=== PATIENT | female | born 1955 | race Caucasian/White ===

== ENCOUNTER 2017-01-03 17:10 | Emergency (ER) | payer MEDICARE, OTHER ==
--- NOTE | 2017-01-03 17:20 | UC ---
Ear Complaint HPI - HPI Summary HPI Summary: Needs ears flushed PCP could not get her in today - History of Current Complaint Stated Complaint: PLUGGED EAR Time Seen by Provider: 01/03/17 17:13 Hx Obtained From: Patient ?: No Onset/Duration: Gradual Onset Severity Initially: Mild Severity Currently: None Associated Signs/Symptoms: Positive: Hearing Loss - Allergies/Home Medications Allergies/Adverse Reactions: Allergies Allergy/AdvReac Type Severity Reaction Status Date / Time Erythromycin Allergy Unknown Verified 01/03/17 17:21 Reaction Details Nitroglycerin Allergy See Comment Verified 01/03/17 17:21 PMH/Surg Hx/FS Hx/Imm Hx Previously Healthy: No Endocrine History Of: Denies: Diabetes Cardiovascular History Of: Reports: Hypertension, Myocardial Infarction Respiratory History Of: Denies: COPD, Asthma Psychological History Of: Reports: Anxiety, Depression Cancer History Of: Denies: Breast Cancer - Surgical History Surgical History: Yes Surgery Procedure, Year, and Place: CARDIAC STENT 2001 - Family History Known Family History: Positive: None Family History: no reported cardio vascular issues in family lineage - Social History Occupation: Employed Full-time Alcohol Use: None Substance Use Type: None Smoking Status (MU): Former Smoker Type: Cigarettes Amount Used/How Often: 1-2 PPD Length of Time of Smoking/Using Tobacco: SINCE 19 YRS OLD Have You Smoked in the Last Year: No When Did the Patient Quit Smoking/Using Tobacco: 09/02/2003 Review of Systems Constitutional: Negative Skin: Negative Eyes: Negative ENT: Ear Ache - feels clogged L>R Respiratory: Negative Cardiovascular: Negative Gastrointestinal: Negative Genitourinary: Negative Motor: Negative Neurovascular: Negative Musculoskeletal: Negative Neurological: Negative Psychological: Negative All Other Systems Reviewed And Are Negative: Yes Physical Exam Triage Information Reviewed: Yes Appearance: Well-Appearing, No Pain Distress, Well-Nourished Vital Signs Reviewed: Yes Eye Exam: Normal Eyes: Positive: Conjunctiva Clear ENT Exam: Normal ENT: Positive: Normal ENT inspection, Hearing grossly normal, Pharynx normal, Other: - b/l cerumen impaction. Negative: Nasal congestion, Nasal drainage, Tonsillar swelling, Tonsillar exudate, Trismus, Muffled/hoarse voice Dental Exam: Normal Neck exam: Normal Neck: Positive: Supple, Nontender, No Lymphadenopathy Respiratory Exam: Normal Respiratory: Positive: No respiratory distress, No accessory muscle use Cardiovascular Exam: Normal Cardiovascular: Positive: Pulses Normal, Brisk Capillary Refill Neurological Exam: Normal Neurological: Positive: Alert, Muscle Tone Normal Psychological Exam: Normal Skin Exam: Normal Re-Evaluation - Re-Evaluation First Eval Change: Improved - Flushed By Rn--Tm visable and WNL Ear Complaint Course/Dx - Course Course Of Treatment: flush ears, avoid q-tips follow with pcp prn - Differential Dx/Diagnosis Differential Diagnosis/HQI/PQRI: Cerumen Impaction, Perforated TM, URI Provider Diagnoses: B/L Cerumen Impaction Resolved Discharge - Discharge Plan Condition: Stable Disposition: HOME Patient Education Materials: Cerumen Impaction (ED), DASH Eating Plan (ED), Hypertension (ED) Referrals: Melinda Shields MD [Primary Care Provider] - If Needed
[2017-01-03 17:21] VITALS: BP 153/73
== END 2017-01-03 17:40 | disposition home or self-care (01) ==
LOC: UCEAST 17:10
DX: H61.23 Impacted cerumen, bilateral (principal)
CPT/HCPCS: 99213; G0463

== ENCOUNTER 2017-02-24 17:42 | Emergency (ER) | payer MEDICARE, OTHER ==
[2017-02-24 17:49] VITALS: BP 164/76
--- NOTE | 2017-02-24 18:19 | UC ---
Ear Complaint HPI - HPI Summary HPI Summary: Gradual onset R ear pain since this morning. Feels a little full and like there is fluid in it. Denies URI sx, fever, recent swimming, or hearing loss. Feels a little better when she rubs in front of her ear and down her jaw. Pt does think she grinds or clenches her teeth at night. - History of Current Complaint Chief Complaint: UCEar Stated Complaint: EAR ACHE Time Seen by Provider: 02/24/17 17:55 Hx Obtained From: Patient ?: No Onset/Duration: Gradual Onset Severity Initially: Mild Severity Currently: Moderate Aggravating Factors: Nothing Alleviating Factors: Nothing Associated Signs/Symptoms: Negative: Discharge, Hearing Loss, Trauma to Ear, URI Symptoms - Allergies/Home Medications Allergies/Adverse Reactions: Allergies Allergy/AdvReac Type Severity Reaction Status Date / Time Erythromycin Allergy Unknown Verified 02/24/17 17:49 Reaction Details Nitroglycerin Allergy See Comment Verified 02/24/17 17:49 PMH/Surg Hx/FS Hx/Imm Hx Cardiovascular History: Hypertension - Surgical History Surgical History: Yes Surgery Procedure, Year, and Place: CARDIAC STENT 2001 - Family History Known Family History: Positive: Hypertension - Social History Alcohol Use: None Substance Use Type: None Smoking Status (MU): Former Smoker Type: Cigarettes Amount Used/How Often: 1-2 PPD Length of Time of Smoking/Using Tobacco: SINCE 19 YRS OLD Have You Smoked in the Last Year: No When Did the Patient Quit Smoking/Using Tobacco: 09/02/2003 Review of Systems Constitutional: Negative Skin: Negative Eyes: Negative ENT: Ear Ache Respiratory: Negative Cardiovascular: Negative Gastrointestinal: Negative Genitourinary: Negative Motor: Negative Neurovascular: Negative Musculoskeletal: Negative Neurological: Negative Psychological: Negative All Other Systems Reviewed And Are Negative: Yes Physical Exam Triage Information Reviewed: Yes Appearance: Well-Appearing, No Pain Distress, Well-Nourished Vital Signs: Initial Vital Signs Temp 96.1 F 02/24/17 17:45 Pulse 85 02/24/17 17:45 Resp 16 02/24/17 17:45 BP 164/76 02/24/17 17:45 Pulse Ox 99 02/24/17 17:45 Vital Signs Reviewed: Yes Eye Exam: Normal, Other - PERRL Eyes: Positive: Conjunctiva Clear ENT Exam: Other - mild tenderness over R TMJ ENT: Positive: TMs normal, Other: - bilat ear canals no swelling, discharge, erythema, or cerumen impactions. Negative: TM bulging, TM dull, TM red Dental Exam: Normal Neck exam: Normal Neck: Positive: Supple, Nontender, No Lymphadenopathy Respiratory Exam: Normal Respiratory: Positive: Chest non-tender, Lungs clear, Normal breath sounds, No respiratory distress, No accessory muscle use Cardiovascular Exam: Normal Cardiovascular: Positive: RRR, No Murmur Musculoskeletal Exam: Normal Neurological Exam: Normal Neurological: Positive: Alert Psychological Exam: Normal Skin Exam: Normal Ear Complaint Course/Dx - Differential Dx/Diagnosis Provider Diagnoses: R otalgia. R TMJ pain Discharge - Discharge Plan Condition: Stable Disposition: HOME Patient Education Materials: Earache (ED), Temporomandibular Disorder (ED) Referrals: Melinda Shields MD [Primary Care Provider] - Additional Instructions: I do not see any infectious cause of your ear pain today. I suspect, given your level of discomfort, that you are having pain from your jaw joint. I recommend you go on a soft [id number] diet for 3-5 days. You can also try intermittent ice packs to the jaw as well as 600mg ibuprofen 3 times per day. Relaxation techniques such as meditation, yoga, and/or massage can help prevent clenching of the jaw. If you have fever, increasing pain, drainage from the ear, or significant hearing changes, please see your primary care provider or return here.
== END 2017-02-24 18:15 | disposition home or self-care (01) ==
LOC: UCEAST 17:42
DX: H92.01 Otalgia, right ear (principal); M26.621 Arthralgia of right temporomandibular joint; I10 Essential (primary) hypertension; Z95.5 Presence of coronary angioplasty implant and graft; Z87.891 Personal history of nicotine dependence
CPT/HCPCS: 99211; G0463

== ENCOUNTER 2017-07-26 15:59 | Emergency (ER) | payer MEDICARE, OTHER ==
[2017-07-26 16:34] VITALS: BP 153/75
--- NOTE | 2017-07-26 17:06 | UC ---
Back Pain HPI - HPI Summary HPI Summary: No known injury, Right sciatic pain no numbness or tingling - History of Current Complaint Chief Complaint: UCBackPain Stated Complaint: LOWER BACK AND HIP PAIN Time Seen by Provider: 07/26/17 16:51 Hx Obtained From: Patient ?: No Onset/Duration: Gradual Onset, Lasting Days - 10 Timing: Constant, Lasting Days Severity Initially: Moderate Severity Currently: Moderate Back Pain: Is Discrete @ - right sciatic Character: Aching, Spasmodic Aggravating Factor(s): Movement Alleviating Factor(s): Rest, Position Associated Signs And Symptoms: Positive: Negative - Allergies/Home Medications Allergies/Adverse Reactions: Allergies Allergy/AdvReac Type Severity Reaction Status Date / Time Erythromycin Allergy Unknown Verified 07/26/17 16:34 Reaction Details Nitroglycerin Allergy See Comment Verified 07/26/17 16:34 Home Medications: Home Medications Rosuvastatin (NF) [Crestor (NF)] 1 tab PO DAILY 07/26/17 [History Confirmed ] PMH/Surg Hx/FS Hx/Imm Hx Previously Healthy: No Endocrine History: Dyslipidemia Cardiovascular History: Hypertension - Surgical History Surgical History: Yes Surgery Procedure, Year, and Place: CARDIAC STENT 2001 - Family History Known Family History: Positive: None, Hypertension Family History: no reported cardio vascular issues in family lineage - Social History Occupation: Retired Lives: With Family Alcohol Use: None Substance Use Type: None Smoking Status (MU): Former Smoker Type: Cigarettes Amount Used/How Often: 1-2 PPD Length of Time of Smoking/Using Tobacco: SINCE 19 YRS OLD Have You Smoked in the Last Year: No When Did the Patient Quit Smoking/Using Tobacco: 09/02/2003 Review of Systems Constitutional: Negative Skin: Negative Eyes: Negative ENT: Negative Respiratory: Negative Cardiovascular: Negative Gastrointestinal: Negative Genitourinary: Negative Motor: Negative Neurovascular: Negative Musculoskeletal: Negative, Arthralgia - right hip,right sciatic joint Neurological: Negative Psychological: Negative Is Patient Immunocompromised?: No All Other Systems Reviewed And Are Negative: Yes Physical Exam Triage Information Reviewed: Yes Appearance: Well-Appearing, No Pain Distress, Well-Nourished Vital Signs: Initial Vital Signs Temp 97.7 F 07/26/17 16:31 Pulse 88 07/26/17 16:31 Resp 18 07/26/17 16:31 BP 153/75 07/26/17 16:31 Pulse Ox 99 07/26/17 16:31 Vital Signs Reviewed: Yes Eye Exam: Normal Eyes: Positive: Conjunctiva Clear ENT Exam: Normal ENT: Positive: Normal ENT inspection, Hearing grossly normal. Negative: Trismus , Muffled voice, Hoarse voice, Sinus tenderness Dental Exam: Normal Neck exam: Normal Neck: Positive: Supple, Nontender, No Lymphadenopathy Respiratory Exam: Normal Respiratory: Positive: Chest non-tender, Lungs clear, Normal breath sounds, No respiratory distress, No accessory muscle use Cardiovascular Exam: Normal Cardiovascular: Positive: RRR, No Murmur, Pulses Normal, Brisk Capillary Refill Musculoskeletal Exam: Normal Musculoskeletal: Positive: Strength Intact, ROM Intact, No Edema Neurological Exam: Normal Neurological: Positive: Alert, Muscle Tone Normal Psychological Exam: Normal Skin Exam: Normal Back Pain Course/Dx - Course Course Of Treatment: referal to physical therapy, pain med, low back exercise, follow with pcp and physical theray - Differential Dx/Diagnosis Provider Diagnoses: Right sciatic pain Discharge - Discharge Plan Condition: Stable Disposition: HOME Prescriptions: Hydrocodone-Acetaminophen [Hydrocodone/Acetaminophen 5-325 mg] 0.5 - 1 tab PO Q6H PRN #10 tab MDD 4 PRN Reason: pain Ibuprofen TAB* [Motrin TAB* 600 MG] 600 mg PO Q6H PRN #30 tab PRN Reason: pain Patient Education Materials: Sciatica (ED), Hypertension (ED), Lower Back Exercises (ED) Referrals: Melinda Shields MD [Primary Care Provider] - 1 Week
== END 2017-07-26 17:24 | disposition home or self-care (01) ==
LOC: UCEAST 15:59
DX: M54.31 Sciatica, right side (principal)
CPT/HCPCS: 99212; G0463

== ENCOUNTER 2018-07-21 14:39 | Emergency (ER) | payer MEDICARE, OTHER ==
--- NOTE | 2018-07-21 14:44 | UC ---
Eye Complaint HPI - HPI Summary HPI Summary: 63 yo female presents with FB sensation in left eye. She tells me that yesterday she began to feel "something" under her left upper eyelid. This has persisted to today. She wears glasses, but no contacts. She has not been outdoors and does not recall getting anything into her eye. Denies vision changes, eye pain, or drainage. - History of Current Complaint Stated Complaint: EYE IRRITATION Time Seen by Provider: 07/21/18 14:44 Hx Obtained From: Patient Onset/Duration: Sudden Onset Severity Initially: Mild Severity Currently: Mild - Allergies/Home Medications Allergies/Adverse Reactions: Allergies Allergy/AdvReac Type Severity Reaction Status Date / Time erythromycin base Allergy Nausea And Verified 07/21/18 14:47 Vomiting nitroglycerin Allergy Anaphylatic Verified 07/21/18 14:47 Shock PMH/Surg Hx/FS Hx/Imm Hx Endocrine History: Dyslipidemia Cardiovascular History: Cardiac Disease, Hypertension - Surgical History Surgical History: Yes Surgery Procedure, Year, and Place: CARDIAC STENT 2001 - Family History Known Family History: Positive: Hypertension - Social History Lives: With Family Alcohol Use: None Substance Use Type: None Smoking Status (MU): Former Smoker Type: Cigarettes Amount Used/How Often: 1-2 PPD Length of Time of Smoking/Using Tobacco: SINCE 19 YRS OLD Have You Smoked in the Last Year: No When Did the Patient Quit Smoking/Using Tobacco: 09/02/2003 Review of Systems All Other Systems Reviewed And Are Negative: Yes Constitutional: Positive: Negative Skin: Positive: Negative Eyes: Positive: Other - FB sensation in left eye ENT: Positive: Negative Respiratory: Positive: Negative Cardiovascular: Positive: Negative Neurological: Positive: Negative Psychological: Positive: Negative Physical Exam - Summary Physical Exam Summary: GENERAL: WDWN. No pain distress. SKIN: No rashes, sores, lesions, or open wounds. HEENT: Head: AT/NC Eyes: EOM intact without pain. PERRLA. LEFT EYE: No scleral injection. Conjunctiva without erythema or inflammation. No discharge or FB appreciated. RIGHT EYE: Conjunctiva clear without inflammation or discharge. No FBs appreciated. Fluorescein exam performed in left eye; no areas of increased uptake, abrasion, FB, or temi sign. NECK: Supple. Nontender. No lymphadenopathy. CHEST: No accessory muscle use. Breathing comfortably and in no distress. CV: Pulses intact. Cap refill <2seconds NEURO: Alert. PSYCH: Age appropriate behavior. Triage Information Reviewed: Yes Vital Signs: Vital Signs: Temp Pulse Resp BP Pulse Ox 97.6 F 75 18 146/74 99 07/21/18 14:49 07/21/18 14:49 07/21/18 14:49 07/21/18 14:55 07/21/18 14:49 Vital Signs Reviewed: Yes Eye Complaint Course/Dx - Course Course Of Treatment: One drop of tetracaine was instilled into the left eye. Pt had immediate relief of FB sensation. Dye exam was normal. The underside of the upper and lower eyelids were swept x2 with a cotton swab without definite FB removed. Pt observed for 15-20minutes and had complete resolution of her symptoms. Will have her f/u if her symptoms return. - Differential Dx/Diagnosis Provider Diagnoses: Left eye FB sensation Discharge - Sign-Out/Discharge Documenting (check all that apply): Patient Departure All imaging exams completed and their final reports reviewed: No Studies - Discharge Plan Condition: Stable Disposition: HOME Patient Education Materials: Eye Foreign Body (ED) Referrals: Melinda Shields MD [Primary Care Provider] - Additional Instructions: If you develop a fever, shortness of breath, chest pain, new or worsening symptoms - please call your PCP or go to the ED. Your blood pressure was high at todays visit. Please see your primary provider within 4 weeks for recheck and re-evaluation. - Billing Disposition and Condition Condition: STABLE Disposition: Home - Attestation Statements Provider Attestation: Per institutional requirements, I have reviewed the chart, however, I was not consulted specifically or made aware of this patient by the midlevel provider. I did not personally evaluate, interact with , or disposition this patient.
[2018-07-21] MEDS ORDERED: Fluorescein Sodium TOPICAL* 1 MG TEST STRIP OPHTHALMIC ONE (14:53)
[2018-07-21] MEDS ORDERED: Tetracaine 0.5% OPTH.SOL 4 ML* 1 DROP BTL BOTH EYES ONE (14:53)
[2018-07-21 14:55] VITALS: BP 146/74
== END 2018-07-21 15:25 | disposition home or self-care (01) ==
LOC: UCEAST 14:39
DX: T15.92XA Foreign body on external eye, part unspecified, left eye, initial encounter (principal); Z88.1 Allergy status to other antibiotic agents; Z88.8 Allergy status to other drugs, medicaments and biological substances; I10 Essential (primary) hypertension; Z87.891 Personal history of nicotine dependence
CPT/HCPCS: 67938; 99211; A9270-GY; G0463

== ENCOUNTER 2018-09-24 18:01 | Emergency (ER) | payer MEDICARE, OTHER ==
[2018-09-24 18:16] VITALS: BP 162/77
--- NOTE | 2018-09-24 18:30 | UC ---
Ear Complaint HPI - HPI Summary HPI Summary: The patient is a 63-year-old female with mild left ear discomfort times hours. She has a history of cerumen impaction. She denies any recent URI symptoms. Her pain is very mild. 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 Onset/Duration: Gradual Onset, Lasting Hours Severity Initially: Mild Severity Currently: Mild Pain Intensity: 1 Pain Scale Used: 0-10 Numeric Aggravating Factors: Nothing Alleviating Factors: Nothing Associated Signs/Symptoms: Negative: Discharge, Hearing Loss, Foreign Body Sensation, Trauma to Ear, Swelling @, URI Symptoms - Allergies/Home Medications Allergies/Adverse Reactions: Allergies Allergy/AdvReac Type Severity Reaction Status Date / Time erythromycin base Allergy Nausea And Verified 09/24/18 18:16 Vomiting nitroglycerin Allergy Anaphylatic Verified 09/24/18 18:16 Shock Home Medications: Home Medications Ibuprofen TAB* [Motrin TAB* 600 MG] 400 mg PO Q6H PRN 09/24/18 [History Confirmed 09/24/18] PMH/Surg Hx/FS Hx/Imm Hx Previously Healthy: Yes Endocrine History: Dyslipidemia Cardiovascular History: Hypertension - Surgical History Surgical History: Yes Surgery Procedure, Year, and Place: CARDIAC STENT 2001 - Family History Known Family History: Positive: None, Hypertension Family History: no reported cardio vascular issues in family lineage - Social History Alcohol Use: None Substance Use Type: None Smoking Status (MU): Former Smoker Type: Cigarettes Amount Used/How Often: 1-2 PPD Length of Time of Smoking/Using Tobacco: SINCE 19 YRS OLD Have You Smoked in the Last Year: No When Did the Patient Quit Smoking/Using Tobacco: 09/02/2003 - Immunization History Most Recent Tetanus Shot: unknown Review of Systems All Other Systems Reviewed And Are Negative: Yes Constitutional: Positive: Negative Skin: Positive: Negative Eyes: Positive: Negative ENT: Positive: Ear Ache Respiratory: Positive: Negative Cardiovascular: Positive: Negative Gastrointestinal: Positive: Negative Genitourinary: Positive: Negative Motor: Positive: Negative Neurovascular: Positive: Negative Musculoskeletal: Positive: Negative Neurological: Positive: Negative Psychological: Positive: Negative Physical Exam Triage Information Reviewed: Yes Appearance: Well-Appearing, No Pain Distress, Well-Nourished Vital Signs: Initial Vital Signs Temp 97.8 F 01/23/19 18:11 Pulse 79 09/24/18 18:11 Resp 16 09/24/18 18:11 BP 162/77 09/24/18 18:11 Pulse Ox 100 09/24/18 18:11 Vital Signs Reviewed: Yes Eyes: Positive: Conjunctiva Clear ENT: Positive: Hearing grossly normal, TMs normal - Right OK, Left unable to vis due to cerumen, Uvula midline. Negative: Nasal congestion, Nasal drainage, Tonsillar swelling, Tonsillar exudate, Muffled voice, Hoarse voice, Sinus tenderness Neck: Positive: Supple, Nontender, No Lymphadenopathy Respiratory: Positive: Lungs clear, Normal breath sounds, No respiratory distress, No accessory muscle use Cardiovascular: Positive: RRR, No Murmur Musculoskeletal: Positive: ROM Intact, No Edema Neurological: Positive: Alert Psychological Exam: Normal Skin Exam: Normal Re-Evaluation - Re-Evaluation First Eval Re-Evaluation Time: 18:55 Change: Improved Comment: after flush TM normal. EAC without lesions Ear Complaint Course/Dx - Differential Dx/Diagnosis Provider Diagnosis: Impacted cerumen, left ear Discharge - Sign-Out/Discharge Documenting (check all that apply): Patient Departure All imaging exams completed and their final reports reviewed: No Studies - Discharge Plan Condition: Stable Disposition: HOME Patient Education Materials: Cerumen Impaction (ED) Referrals: Melinda Shields MD [Primary Care Provider] - If Needed - Billing Disposition and Condition Condition: STABLE Disposition: Home
== END 2018-09-24 19:03 | disposition home or self-care (01) ==
LOC: UCEAST 18:01
DX: H61.22 Impacted cerumen, left ear (principal); Z95.5 Presence of coronary angioplasty implant and graft; Z88.1 Allergy status to other antibiotic agents; Z88.8 Allergy status to other drugs, medicaments and biological substances; Z87.891 Personal history of nicotine dependence
CPT/HCPCS: 99213; G0463

== ENCOUNTER 2019-07-11 16:52 | Emergency (ER) | payer MEDICARE, OTHER ==
--- OUTSIDE RECORDS SUMMARY | 2019-07-11 17:00 | XMS REPORT | Continuity of Care Document ---
:1955 External Reference #:[id number] Author Name Nelsy Sampson NP Address [address] [facility] [place] [address] Care Team Providers Name Role Phone Melinda Shields M.D. - Family Medicine Care Team Information Amf Mechanic Unavailable Celena Astudillo MD - Cardiovascular Care Team Information Amf Mechanic Disease Problems Active Problems Provider Date Coronary arteriosclerosis Melinda Shields M.D. Onset: 04/27/2016 Mixed hyperlipidemia Melinda Shields M.D. Onset: 04/27/2016 Thyroid nodule Melinda Shields M.D. Onset: 05/30/2016 Atherosclerotic heart disease of [place] coronary Melinda Shields M.D. Onset: artery with unspecified angina pectoris Essential hypertension Melinda Shields M.D. 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 Tobacco Use Start: Unknown End: Patient is a former Unknown smoker Smoking Status Reviewed: 07/06/19 Patient is a former smoker Allergies, Adverse Reactions, Alerts Active Allergies Reaction Severity Comments Date Nitroglycerine 02/15/2004 Erythromycin 02/15/2004 Medications Active Medications SIG Qnty Indications Ordering Date Provider Pyridium take one-two 30tabs N39.0 Nelsy Tinajero 07/06/2019 100mg Tablets tablets every 8 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, 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 hours as needed for urinary symptoms Losartan Potassium Take 1 & 1/2 45tabs I10 Shanthi Fan, 12/18/2013 50mg Tablet By Mouth SPECIMEN BOSS Tablets Every Day Multi Vitamin Daily once a day Unknown Tablets Vitamin C 1 by mouth every Unknown 500mg day Capsules Co-Enzyme Q-10 1 by mouth every Unknown 100mg day Capsules Fish Oil 1 by mouth every Unknown 1200mg day Capsules Ecotrin Low Strength 1 by mouth every 100tabs Unknown day 81mg Tablets DR Vitamin D 1 po every day Unknown 2000Unit Tablets Rosuvastatin Calcium 1/2 by mouth E78.2 Unknown every day 20mg Tablets History Medications Macrobid 1 by mouth twice a 14caps N39.0 Neto Mckeon 06/26/2019 - 100mg day x 7d MD Albina 07/06/2019 Capsules Physical Therapy treatment and Lisa Haddad, 04/20/2019 - evaluation of left Afnp-C 07/06/2019 low back pain Immunizations CPT Code Status Date Vaccine Lot # [id number] Given 06/09/2018 Influenza Vac, [place], [place] [address] Given 06/09/2018 Influenza Vac, [place], [place] [address] Given 06/24/2017 Influenza Vac, Quadrivalent, Slit Virus, Im [id number] 28797 Given 07/04/2015 Influenza Vac, Quadrivalent, Slit Virus, Im [id number] Q2038 Given 06/24/2014 Split Influenza Medicare: Fluzone [id number] 57579 Given 06/19/2008 DO Not Use Split Influenza Virus Vaccine [id number] 36146 Given 07/19/2007 DO Not Use Split Influenza Virus Vaccine [id number] 29864 Given 06/21/2005 DO Not Use Split Influenza Virus Vaccine 72038 Given 11/14/2004 Rubella Immunization 45739 Given 08/14/2002 Td Immunization, For Use In Individuals 7 Years Or Older Vital Signs Date Vital Result Comment 07/06/2019 1:20pm BP Systolic 138 mmHg BP Diastolic 72 mmHg Heart Rate 88 /min Body Temperature 97.9 F Respiratory Rate 16 /min Height 64 inches 5'4" per patient Weight 150.00 lb BMI (Body Mass Index) 25.7 kg/m2 06/26/2019 2:57pm BP Systolic 142 mmHg BP Diastolic 70 mmHg Heart Rate 78 /min Body Temperature 98.1 F Respiratory Rate 16 /min Height 64 inches 5'4" per patient Weight 150.00 lb BMI (Body Mass Index) 25.7 kg/m2 Results Test Date Facility Test Result H/L Range Note Ua - Micro (Fma) 07/06/2019 [facility] Medicine Appearance clear (607)- - Color yellow Glucose, Urine (Fma/CMC/CTX) neg Bilirubin neg Ketones neg SP Grav <=1.005 Blood neg PH 6.0 Protein neg Urobil 0.2 Nitrite neg Leukocytes (Fma/CMC/Centrex) trace Hyaline - /Lpf Granular - /Lpf WBC (Fma,Centrex) 0-2 RBC 0-1 Mucus (Fma/CBC/Centrex) - /Lpf Epith rare /Lpf Bacteria rare /Hpf Amorphous (Fma/CMC/Centrex) - /Lpf Crystals, Fluid (Fma/CMC/CTX) - Ua - Non Micro (Fma) 06/26/2019 Family [facility] Appearance clear (607)- - Color yellow Glucose, Urine (Fma/CMC/CTX) neg Bilirubin neg Ketones neg SP Grav 1.015 Blood neg PH 6.0 Protein neg Urobil 0.2 Nitrite neg Leukocytes (Fma/CMC/Centrex) small Urine Culture And 06/26/2019 [facility] Urine Culture SEE RESULT 1 Sensitivities BELOW Lipid Profile 02/23/2019 [facility](a) Cholesterol 224 mg/dL High 120-20 0 Triglycerides 142 mg/dL 30-200 HDL Cholesterol 59 mg/dL 30-85 LDL (Calculated) 137 CALC High 0-129 VLDL Cholesterol 28 mg/dL 0-50 HDL Risk Factor 3.8 CALC 0.0-4.4 1 SEE RESULT BELOW Name: MELINDA POPE : [address]: Neto Montemayor MD Acct: [id number] Unit: [id number] AGE: 64 Location: [facility] Re06/26/19 SEX: F Status: REG REF SPEC: [id number] ANNA: 06/26/[address]: Neto Montemayor MD REQ: [id number] RECD: 06/26/19 STATUS: COMP _ SOURCE: URINE SPDESC: ORDERED: Urine Culture COMMENTS: 1 elias urine top [id number] Urine Source: Random Procedure Result Reported Site Urine Culture Final 06/27/19- 1628 ML No Growth (<1,000 CFU/mL) * ML - Main Lab . END OF REPORT DEPARTMENT OF PATHOLOGY, [address] [place] [address] Santiago Encarnacion M.D. Director [facility] # [id number] Procedures Date Code Description Status 10/18/2017 [id number] Mammogram Completed 11/07/2016 [id number] Colonoscopy Completed 06/05/2016 [id number] Mammogram Completed 12/28/2008 [id number] Mammogram Completed 05/04/2008 [id number] Mammogram Completed 09/17/2007 [id number] Mammogram Completed 01/30/2007 [id number] Mammogram Completed 06/25/2006 [id number] Colonoscopy Completed 06/18/2006 [id number] Mammogram Completed Medical Devices Description No Information Available Encounters Type Date Location Provider Dx Diagnosis Office Visit 06/26/2019 Main Office Neto Mckeon N39.0 Urinary tract 2:50p MD Albina infection, site not specified Office Visit 04/20/2019 [facility] Lisa Haddad M54.5 Low back pain 4:30p Afnp-C Assessments Date Code Description Provider 07/06/2019 N39.0 Urinary tract infection, site not specified Nelsy Sampson NP 06/26/2019 N39.0 Urinary tract infection, site not specified Neto Montemayor MD 04/20/2019 M54.5 Low back pain Alex Hatch-C 02/23/2019 I10 Essential (primary) hypertension Melinda Shields M.D. Plan of Treatment 07/06/2019 - Nelsy Sampson NPN39.0 Urinary tract infection, site not specifiedNew Medication:Pyridium 100 mg - take one-two tablets every 8 hours as needed for urinary symptomsComments:Supportive Care: Drink lots of fluidswear cotton underweardo not soak in hot tubs/ bath tubs urinateafter sexual intercourse To prevent stomach upset, please start consuming live cultures ( yogurt, [place] probiotic, Kombucha) Pyridium: Beware it causes your urine to turn orange and may stain some of your underwear.AllComments:Medication Management Patient Understands medications he 's taking? Yes No Are there Barriers to Adherence? Yes No Has the patient been asked about herbal supplements and therapies, andOTC meds? Yes No Care Plan1. Patient has been queried about patient's goals/preferences and functional/ lifestyle goals at relevant visits. If relevant, describe: na2. Treatment goals as explained to the patient: above3. Are there barriers to meeting treatment goals? Yes No If Yes, please describe:4. Self-Management goals as described to the patient: Yes NoAs always, we strongly encourage a healthy diet and making physical activity a part of your every day life. If you have questions about how or where to start, please contact the office. Functional Status Description No Information Available Mental Status Description No Information Available Referrals Description No Information Available
--- OUTSIDE RECORDS SUMMARY | 2019-07-11 17:00 | XMS REPORT | Continuity of Care Document ---
:1955 External Reference #:[id number] Author Name Neto Montemayor MD Address [address] [facility] [place] [address] Care Team Providers Name Role Phone Melinda Shields M.D. - Family Medicine Care Team Information Food Service Representative Unavailable Celena Astudillo MD - Cardiovascular Care Team Information Food Service Representative [phone] Disease Problems Active Problems Provider Date Coronary arteriosclerosis Melinda Shields M.D. Onset: 04/27/2016 Mixed hyperlipidemia Melinda Shields M.D. Onset: 04/27/2016 Thyroid nodule Melinda Shields M.D. Onset: 05/30/2016 Atherosclerotic heart disease of [place] coronary Melinda Shields M.D. Onset: artery with unspecified angina pectoris Essential hypertension Melinda Shields M.D. 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 Tobacco Use Start: Unknown End: Patient is a former Unknown smoker Smoking Status Reviewed: 04/21/19 Patient is a former smoker Allergies, Adverse Reactions, Alerts Active Allergies Reaction Severity Comments Date Nitroglycerine 02/15/2004 Erythromycin 02/15/2004 Medications Active Medications SIG Qnty Indications Ordering Date Provider Macrobid 1 by mouth twice a 14caps N39.0 Neto Mckeon 06/26/2019 100mg day x 7d MD Albina Capsules Physical Therapy treatment and Lisa 04/20/2019 evaluation of left [place], Afnp-C low back pain Losartan Potassium Take 1 & 1/2 45tabs I10 Shanthi Fan, 12/18/2013 Tablet By Mouth SALES CLOSER 50mg Tablets Every Day Multi Vitamin Daily once a day Unknown Tablets Vitamin C 1 by mouth every Unknown 500mg day Capsules Co-Enzyme Q-10 1 by mouth every Unknown 100mg day Capsules Fish Oil 1 by mouth every Unknown 1200mg day Capsules Ecotrin Low Strength 1 by mouth every 100tabs Unknown day 81mg Tablets Vitamin D 1 po every day Unknown 2000Unit Tablets Rosuvastatin Calcium 1/2 by mouth every E78.2 Unknown day 20mg Tablets Immunizations CPT Code Status Date Vaccine Lot # [id number] Given 06/09/2018 Influenza Vac, Quadriv[place], [place] [id number] Given 06/09/2018 Influenza Vac, [place]riv[place], [place] [address] Given 06/24/2017 Influenza Vac, Quadrivalent, Slit Virus, Im [id number] 69838 Given 07/04/2015 Influenza Vac, Quadrivalent, Slit Virus, Im [id number] Q2038 Given 06/24/2014 Split Influenza Medicare: Fluzone [id number] 70212 Given 06/19/2008 DO Not Use Split Influenza Virus Vaccine [id number] 37654 Given 07/19/2007 DO Not Use Split Influenza Virus Vaccine [id number] 05567 Given 06/21/2005 DO Not Use Split Influenza Virus Vaccine 29131 Given 11/14/2004 Rubella Immunization 11224 Given 08/14/2002 Td Immunization, For Use In Individuals 7 Years Or Older Vital Signs Date Vital Result Comment 06/26/2019 2:57pm BP Systolic 142 mmHg BP Diastolic 70 mmHg Heart Rate 78 /min Body Temperature 98.1 F Respiratory Rate 16 /min Height 64 inches 5'4" per patient Weight 150.00 lb BMI (Body Mass Index) 25.7 kg/m2 04/20/2019 4:22pm BP Systolic 128 mmHg BP Diastolic 70 mmHg Heart Rate 66 /min Body Temperature 97.7 F Height 64 inches 5'4" per patient Weight 146.00 lb BMI (Body Mass Index) 25.1 kg/m2 Results Test Date Facility Test Result H/L Range Note Ua - Non Micro (Fma) 06/26/2019 [facility] Appearance clear (607)- - Color yellow Glucose, Urine (Fma/CMC/CTX) neg Bilirubin neg Ketones neg SP Grav 1.015 Blood neg PH 6.0 Protein neg Urobil 0.2 Nitrite neg Leukocytes (Fma/CMC/Centrex) small Lipid Profile 02/23/2019 [place](fma) Cholesterol 224 mg/dL High 120-200 Triglycerides 142 mg/dL 30-200 HDL Cholesterol 59 mg/dL 30-85 LDL (Calculated) 137 CALC High 0-129 VLDL Cholesterol 28 mg/dL 0-50 HDL Risk Factor 3.8 CALC 0.0-4.4 Procedures Date Code Description Status 12/30/2018 66728 Remove Impact Cerumen Irrigati Completed 10/18/2017 [id number] Mammogram Completed 11/07/2016 [id number] Colonoscopy Completed 06/05/2016 [id number] Mammogram Completed 12/28/2008 [id number] Mammogram Completed 05/04/2008 [id number] Mammogram Completed 09/17/2007 [id number] Mammogram Completed 01/30/2007 [id number] Mammogram Completed 06/25/2006 [id number] Colonoscopy Completed 06/18/2006 [id number] Mammogram Completed Medical Devices Description No Information Available Encounters Type Date Location Provider Dx Diagnosis Office Visit 04/20/2019 [facility] Lisa Haddad, M54.5 Low back pain 4:30p Afnp-C Office Visit 12/30/2018 Main Office Nelsy Tinajero H61.23 Impacted cerumen, 10:30a CORNELIUS Sampson bilateral Assessments Date Code Description Provider 06/26/2019 N39.0 Urinary tract infection, site not Neto Montemayor MD specified 04/20/2019 M54.5 Low back pain Mathisnp-C 02/23/2019 I10 Essential (primary) hypertension Melinda Shields M.D. 12/30/2018 H61.23 Impacted cerumen, bilateral Nelsy Sampson NP Plan of Treatment 06/26/2019 - Neto Montemayor MDN39.0 Urinary tract infection, site not specifiedNew Medication:Macrobid 100 mg - 1 by mouth twice a day x 7dAllComments :Medication Management Patient Understands medications she's taking? Yes No Are there Barriers to Adherence? Yes No Has the patient been asked about herbal supplements and therapies, and OTC meds? Yes No Functional Status Description No Information Available Mental Status Description No Information Available Referrals Description No Information Available
[2019-07-11 17:07] VITALS: BP 152/72
--- NOTE | 2019-07-11 17:23 | UC ---
Respiratory Complaint HPI - HPI Summary HPI Summary: started with ST and PND 1 week sago, over past 3 days has developed cough. last pm it was worse and she cannnot sleep d/t cough. 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 Negative: Fever, Chills - Allergies/Home Medications Allergies/Adverse Reactions: Allergies Allergy/AdvReac Type Severity Reaction Status Date / Time nitroglycerin Allergy Anaphylatic Verified 07/11/19 17:07 Shock erythromycin base AdvReac Nausea And Verified 07/11/19 17:07 Vomiting PMH/Surg Hx/FS Hx/Imm Hx Previously Healthy: Yes Endocrine History: Dyslipidemia Cardiovascular History: Hypertension - Surgical History Surgical History: Yes Surgery Procedure, Year, and Place: CARDIAC STENT 2001 - Family History Known Family History: Positive: None, Hypertension Family History: no reported cardio vascular issues in family lineage - Social History Occupation: Retired Lives: Alone Alcohol Use: None Substance Use Type: None Smoking Status (MU): Former Smoker Type: Cigarettes Amount Used/How Often: 1-2 PPD Length of Time of Smoking/Using Tobacco: SINCE 19 YRS OLD Have You Smoked in the Last Year: No When Did the Patient Quit Smoking/Using Tobacco: 09/02/2001 - Immunization History Most Recent Influenza Vaccination: 2019 Most Recent Tetanus Shot: unknown Review of Systems All Other Systems Reviewed And Are Negative: Yes Constitutional: Positive: Fatigue. Negative: Fever, Chills Skin: Positive: Negative ENT: Positive: Sore Throat, Sinus Congestion Respiratory: Positive: Cough Cardiovascular: Positive: Negative. Negative: Chest Pain Gastrointestinal: Positive: Negative Neurological: Positive: Negative. Negative: Headache Psychological: Positive: Negative Is Patient Immunocompromised?: No Physical Exam Triage Information Reviewed: Yes Appearance: Well-Appearing, No Pain Distress, Well-Nourished Vital Signs: Initial Vital Signs Temp 98.5 F 07/11/19 17:01 Pulse 93 07/11/19 17:01 Resp 18 07/11/19 17:01 BP 152/72 07/11/19 17:01 Pulse Ox 100 07/11/19 17:01 Vital Signs Reviewed: Yes Eyes: Positive: Conjunctiva Clear ENT: Positive: Pharynx normal, Nasal congestion, TMs normal. Negative: Hoarse voice Neck exam: Normal Neck: Positive: Supple, Nontender Respiratory: Positive: Crackles - Lower R lobe, persistent deep cough with deep inspirations Cardiovascular Exam: Normal Cardiovascular: Positive: RRR Neurological Exam: Normal Neurological: Positive: Alert Psychological Exam: Normal Skin Exam: Normal Skin: Negative: Rashes Respiratory Course/Dx - Differential Dx/Diagnosis Differential Diagnosis/HQI/PQRI: Bronchitis, Influenza, Lower Resp Infection, Sinusitis Provider Diagnosis: Bronchitis Discharge ED - Sign-Out/Discharge Documenting (check all that apply): Patient Departure All imaging exams completed and their final reports reviewed: No Studies - Discharge Plan Condition: Good Disposition: HOME Prescriptions: Cefdinir [Cefdinir 300 MG CAP] 300 mg PO BID #20 capsule guaiFENesin/CODIEN 100MG-10MG* [Robitussin AC 100Mg-10Mg*] 10 ml PO Q4H PRN # 120 ml MDD 40ml PRN Reason: Cough Patient Education Materials: Acute Bronchitis (ED) Referrals: Melinda Shields MD [Primary Care Provider] - 2 Days (If no better and to recheck blood pressure) Additional Instructions: rest and drink plenty of fluids start antibiotic and take as directed use codeine cough syrup as directed (no alcohol when using this medication) - Billing Disposition and Condition Condition: GOOD Disposition: Home - Attestation Statements Provider Attestation: Per institutional requirements, I have reviewed the chart, however, I was not consulted specifically or made aware of this patient by the midlevel provider. I did not personally evaluate, interact with , or disposition this patient.
== END 2019-07-11 17:37 | disposition home or self-care (01) ==
LOC: UCEAST 16:52
DX: J40 Bronchitis, not specified as acute or chronic (principal); I10 Essential (primary) hypertension; R09.81 Nasal congestion; Z95.5 Presence of coronary angioplasty implant and graft; Z88.0 Allergy status to penicillin; Z88.8 Allergy status to other drugs, medicaments and biological substances; Z87.891 Personal history of nicotine dependence
CPT/HCPCS: 99212; G0463

== ENCOUNTER 2020-07-19 08:50 | Inpatient (IN) ==
[~2020-07-19 08:50] MED LIST: Buffered Lidocaine 1% SYRIN 1 ml INTRADERM ONE; Lactated Ringers 1000 ml BAG 1,000 ML IV SCH
[2020-07-19] MEDS ORDERED: Buffered Lidocaine 1% SYRIN 1 ml INTRADERM ONE (09:28)
[2020-07-19] MEDS ORDERED: ceFAZolin 2 GM PREMIX 2 GM/50 ML BAG ONE (09:28)
[2020-07-19] MEDS ORDERED: fentaNYL 250 mcg/5 ml 50 MCG/ML 5 ml VIAL (250 MCG) ONE (09:52)
[2020-07-19] MEDS ORDERED: fentaNYL 100 mcg/2 ml 50 MCG/ML VIAL ONE (09:52)
[2020-07-19] MEDS ORDERED: Midazolam 5 mg/5 ml VIAL 1 mg/ml 5 ml VIAL (5 mg) ONE (09:52)
[2020-07-19] MEDS ORDERED: Propofol 10 MG/ML 20 ML BTL ONE ×2 (12:04→12:56)
[2020-07-19] MEDS ORDERED: Phenylephrine 40 mcg/mL 10mL (400mcg) SYRINGE ONE (12:21)
[2020-07-19] MEDS ORDERED: Ondansetron 4 mg VIAL 2 MG/ML 2 ml VIAL IV PRN (12:46)
[2020-07-19] MEDS ORDERED: Naloxone 0.4 mg VIAL 0.4 mg/ml 1 ml VIAL IV PRN (12:46)
[2020-07-19] MEDS ORDERED: diPHENhydraMINE IV 50 MG/ML 1 ml VIAL (BENADRYL) IV PRN ×2 (12:46→14:29)
[2020-07-19] MEDS ORDERED: Ondansetron ODT 4 mg TAB 4 MG TAB PO PRN (14:29)
[2020-07-19] MEDS ORDERED: Magnesium Hydroxide LIQ 30 ML UDC PO PRN (14:29)
[2020-07-19] MEDS ORDERED: Lactulose 30 ml UDC PO PRN (14:29)
[2020-07-19] MEDS ORDERED: Ondansetron 4 mg VIAL 2 MG/ML 2 ml VIAL ONE (14:29)
[2020-07-19] MEDS ORDERED: Morphine 2 MG/ML SYRINGE IV PRN (14:29)
[2020-07-19] MEDS ORDERED: diPHENhydraMINE 25 mg TAB PO PRN (14:29)
[2020-07-19] MEDS: Lactated Ringers 1000 ml BAG 1,000 ML IV SCH (16:13)
[2020-07-19] MEDS: Metoclopramide 5 MG/ML VIAL (10 mg) IV PRN ×2 (16:35→21:10)
[2020-07-19] MEDS ORDERED: Lactated Ringers 500 ml BAG 500 ML IV ONE ×2 (16:55→17:16)
[2020-07-19 17:48] LABS: ABS Lymphocytes 1.2 10^3/ul (1.0-4.8); ABS Monocytes 0.6 10^3/ul (0-0.8); Eosinophil % 0.3 %; Hematocrit 33 % (35-47); Lymphocyte % 13.9 %; Mean Corpuscular HGB Conc 33 g/dL (31-36); Mean Corpuscular Hemoglobin 33 pg (27-31); Mean Corpuscular Volume 98 fL (80-97); Mean Platelet Volume 8.2 fL (7.4-10.4); Platelet Count 157 10^3/uL (150-450); Red Blood Count 3.36 10^6 /uL (3.70-4.87); Red Cell Distribution Width 13 % (10-15); White Blood Count 8.9 10^3/uL (3.5-10.8)
[2020-07-19 19:26] LABS: Albumin 3.8 g/dL (3.2-5.2); Albumin/Globulin Ratio 1.9 (1-3); BUN/Creatinine Ratio 25.9 (8-20); Calcium 8.6 mg/dL (8.6-10.3); EGFR African American 125.9 (>60); Potassium 3.9 mmol/L (3.5-5.0); Total Bilirubin 0.5 mg/dL (0.2-1.0); Total Protein 5.8 g/dL (6.4-8.9)
[2020-07-19] MEDS: ceFAZolin 1 GM ADVAN 1 GM in NS 0.9% 50 ML 50 ML IVPB SCH (19:57)
[2020-07-19] MEDS: Ondansetron 4 mg VIAL 2 MG/ML 2 ml VIAL IV PRN (19:57)
[2020-07-19] MEDS: Magnesium Hydroxide LIQ 30 ML UDC PO SCH (21:54)
[2020-07-19] MEDS ORDERED: HYDROcodone/ACETAMIN 5/325 mg TAB PO PRN (22:56)
[2020-07-19 23:41] LABS: BUN/Creatinine Ratio 22.8 (8-20); Calcium 8.1 mg/dL (8.6-10.3); EGFR African American 128.4 (>60); EGFR Non-African American 106.1 (>60); Magnesium 1.5 mg/dL (1.9-2.7); Potassium 3.5 mmol/L (3.5-5.0)
[2020-07-19 23:42] LABS: Hematocrit 32 % (35-47); Hemoglobin 11.3 g/dL (12.0-16.0)
[2020-07-19] MEDS ORDERED: Magnesium Sulfate 2 gm BAG 2 GM/50 ML BAG IVPB ONE (23:53)
[2020-07-20] MEDS: KCL 10 MEQ/50 ML IVPREMIX 10 MEQ/50 ML BAG IV SCH ×4 (00:59→07:21)
[2020-07-20] MEDS: HYDROcodone/ACETAMIN 5/325 mg TAB PO PRN ×2 (01:05→12:10)
[2020-07-20 03:59] LABS: T4, Total 7.6 mcg/dL (6.09-12.23)
[2020-07-20 04:02] LABS: TSH Ultra Thyroid Stim Horm 2.33 mcIU/mL (0.34-5.60)
[2020-07-20 04:04] LABS: Free T3 2.6 pg/mL (2.5-3.9)
[2020-07-20 05:29] LABS: Hematocrit 32 % (35-47); Hemoglobin 11.3 g/dL (12.0-16.0); Platelet Count 174 10^3/uL (150-450)
[2020-07-20] MEDS: ceFAZolin 1 GM ADVAN 1 GM in NS 0.9% 50 ML 50 ML IVPB SCH ×2 (05:30→12:10)
[2020-07-20 05:51] LABS: BUN/Creatinine Ratio 19.3 (8-20); Calcium 8.1 mg/dL (8.6-10.3); EGFR African American 128.4 (>60); EGFR Non-African American 106.1 (>60); Potassium 4.2 mmol/L (3.5-5.0)
[2020-07-20] MEDS: Ondansetron 4 mg VIAL 2 MG/ML 2 ml VIAL IV PRN (06:10)
[2020-07-20] MEDS: Metoclopramide 5 MG/ML VIAL (10 mg) IV PRN (06:55)
[2020-07-20] MEDS: Lactated Ringers 1000 ml BAG 1,000 ML IV SCH ×2 (07:21→20:49)
[2020-07-20 08:43] LABS: Magnesium 2.2 mg/dL (1.9-2.7)
[2020-07-20] MEDS: Vitamin THERAPEUTIC TAB PO SCH (09:02)
[2020-07-20] MEDS: Magnesium Hydroxide LIQ 30 ML UDC PO SCH ×2 (09:02→20:46)
[2020-07-20] MEDS: Aspirin EC 81 mg TAB.EC (enteric coated) PO SCH (09:02)
[2020-07-21] MEDS: Lactated Ringers 1000 ml BAG 1,000 ML IV SCH ×2 (06:02→16:48)
[2020-07-21 07:40] LABS: Hematocrit 32 % (35-47); Mean Platelet Volume 8.2 fL (7.4-10.4); Platelet Count 167 10^3/uL (150-450)
[2020-07-21] MEDS: Aspirin EC 81 mg TAB.EC (enteric coated) PO SCH (08:18)
[2020-07-21] MEDS: Magnesium Hydroxide LIQ 30 ML UDC PO SCH ×2 (08:18→21:44)
[2020-07-21] MEDS: Vitamin THERAPEUTIC TAB PO SCH (08:18)
[2020-07-21] MEDS: HYDROcodone/ACETAMIN 5/325 mg TAB PO PRN (08:19)
[2020-07-21] MEDS: Ondansetron 4 mg VIAL 2 MG/ML 2 ml VIAL IV PRN (09:16)
[2020-07-22 07:50] LABS: Hematocrit 29 % (35-47); Hemoglobin 9.9 g/dL (12.0-16.0); Mean Platelet Volume 8.2 fL (7.4-10.4); Platelet Count 168 10^3/uL (150-450)
[2020-07-22] MEDS: Magnesium Hydroxide LIQ 30 ML UDC PO SCH (08:29)
[2020-07-22] MEDS: Aspirin EC 81 mg TAB.EC (enteric coated) PO SCH (08:29)
[2020-07-22] MEDS: Vitamin THERAPEUTIC TAB PO SCH (08:29)
[2020-07-22 11:39] VITALS: BP 141/65
== END 2020-07-22 15:45 | disposition home health service (06) | DRG 470 ==
LOC: INTOOBSV 08:50 → AA 08:50 → OBSVTOIN 08:50 → SSU 14:29 → MEDTELE 07-20 03:39
PROVIDERS: ADMIT Orthopaedic Surgery Adult Reconstructive Orthopaedic Surgery; ATTEND Orthopaedic Surgery Adult Reconstructive Orthopaedic Surgery